=== PATIENT | female | born 1970 | race Two or more races ===

== ENCOUNTER 2022-01-23 20:23 | Emergency (ER) | payer MEDICAID, OTHER ==
[~2022-01-23] VITALS: Ht 160 cm; Wt 68.0 kg
[2022-01-23 21:05] VITALS: BP 154/74
--- NOTE | 2022-01-23 21:05 | NUR ---
[id number] C/O ALLERGIC REACTION TO AMOXICILLIN PRESCRIBED S/P JOSE 01/12/22. HAND SWELLING & REDNESS NOTED. NO RESP DISTRESS NOTED.
[2022-01-23] MEDS ORDERED: PRED20TA PO (21:11)
[2022-01-23] MEDS ORDERED: predniSONE 20 MG TABLET ONE (21:27)
[2022-01-23] MEDS ORDERED: predniSONE 20 MG TABLET PO ONE (21:30)
--- NOTE | 2022-01-23 21:36 | NUR ---
Patient discharged to home in stable condition. RX Written and verbal after care instructions given. Patient verbalizes understanding of instruction. PT ambulatory with a steady gait
== END 2022-01-23 21:37 | disposition home or self-care (01) ==
LOC: ER 20:35
DX: L25.8 Unspecified contact dermatitis due to other agents (principal); T50.8X5A Adverse effect of diagnostic agents, initial encounter; Z88.0 Allergy status to penicillin; Z60.2 Problems related to living alone; Y92.89 Other specified places as the place of occurrence of the external cause
CPT/HCPCS: 99283; J7512